=== PATIENT | male | born 1960 | race African-American/Black ===

== ENCOUNTER 2023-04-14 16:10 | Emergency (ER) | payer OTHER ==
[~2023-04-14] VITALS: Ht 170.2 cm; Wt 73.0 kg
[2023-04-14 16:25] VITALS: BP 128/68; PULSE 71; RESP 14; TEMP 98.6; O2SAT 100
[2023-04-14 16:49] LABS: DIFFERENTIAL COMMENT 0; EOSINOPHILS % 1.6 % (0.0-5.0); HEMATOCRIT. 35.4 % (42.0-52.0); HEMOGLOBIN. 11.5 g/dL (14.0-18.0); LYMPHOCYTES % 41.6 % (20.0-50.0); MEAN CORPUSCULAR HEMOGLOBIN 33.6 pg (28.0-32.0); MEAN CORPUSCULAR HGB CONC 32.6 g/dL (31.0-37.0); MEAN CORPUSCULAR VOLUME 103.1 fL (80.0-94.0); MEAN PLATELET VOLUME 7.5 fl (7.4-10.4); MONOCYTES % 10.2 % (2.0-8.0); NEUTROPHILS % 45.6 % (40.0-76.0); PLATELET 230 x1000/uL (130-400); RED BLOOD CELL COUNT 3.43 mill/uL (4.7-6.1); RED CELL DISTRIBUTION WIDTH 13.9 % (11.6-14.6)
[2023-04-14 17:04] LABS: ALANINE AMINOTRANSFERASE 12 IU/L (10-49); ALBUMIN 4.1 g/dL (3.2-4.8); ASPARTATE AMINOTRANSFERASE 22 IU/L (<34); CALCIUM 9.4 mg/dL (8.7-10.4); CARBON DIOXIDE 25 mEq/L (21-32); CHLORIDE 107 mEq/L (98-107); CREATININE 0.9 mg/dL (0.6-1.3); ETHANOL BLOOD 291 mg/dL (<10); GLUCOSE 82 mg/dL (70-105); POTASSIUM 3.9 mEq/L (3.5-5.1); PROTEIN TOTAL 6.6 g/dL (6.0-8.3); SODIUM 141 mEq/L (136-145); UREA NITROGEN BLOOD 13 mg/dL (9-23)
== END 2023-04-15 02:39 | disposition left against medical advice (07) ==
LOC: ER 16:10
DX: R53.1 Weakness (principal); F10.129 Alcohol abuse with intoxication, unspecified; I10 Essential (primary) hypertension; Y90.8 Blood alcohol level of 240 mg/100 ml or more
CPT/HCPCS: 36415; 80053; 80320; 85025; 99283; G0480

== ENCOUNTER 2023-05-06 01:33 | Emergency (ER) | payer MEDICAID, OTHER ==
[~2023-05-06] VITALS: Ht 172.7 cm; Wt 75.0 kg
[2023-05-06 01:45] VITALS: BP 132/84; PULSE 84; RESP 18; TEMP 98.1; O2SAT 98
[2023-05-06] MEDS ORDERED: ACETAMINOPHEN 650MG/20.3ML UDC PO ONE (06:00)
== END 2023-05-06 05:49 | disposition home or self-care (01) ==
LOC: ER 01:41
DX: M54.50 Low back pain, unspecified (principal)
CPT/HCPCS: 99283

== ENCOUNTER 2024-03-28 16:57 | Emergency (ER) | payer MEDICAID, OTHER ==
[~2024-03-28] VITALS: Ht 170.2 cm; Wt 77.0 kg
[~2024-03-28 16:57] MED LIST: ACET-2708 MT; CYCL10TA21 MT; ONDA4TAB50 MT; TRAZ-251 MT
[2024-03-28 17:03] VITALS: O2SAT 99
[2024-03-28 17:40] LABS: BASOPHILS % 0.5 % (0.0-2.0); EOSINOPHILS % 2.3 % (0.0-5.0); HEMATOCRIT. 32.6 % (42.0-52.0); LYMPHOCYTES % 49.1 % (20.0-50.0); MEAN CORPUSCULAR HGB CONC 33.8 g/dL (31.0-37.0); MEAN CORPUSCULAR VOLUME 94.9 fL (80.0-94.0); MEAN PLATELET VOLUME 7.3 fl (7.4-10.4); MONOCYTES % 8.2 % (2.0-8.0); NEUTROPHILS % 39.9 % (40.0-76.0); PLATELET 405 x1000/uL (130-400); RED BLOOD CELL COUNT 3.43 mill/uL (4.7-6.1); RED CELL DISTRIBUTION WIDTH 15.1 % (11.6-14.6); WHITE BLOOD COUNT 5.1 x1000/uL (4.5-11.0)
[2024-03-28 17:48] LABS: CARBON DIOXIDE 25 mEq/L (21-32); CHLORIDE 108 mEq/L (98-107); POTASSIUM 3.5 mEq/L (3.5-5.1); SODIUM 142 mEq/L (136-145)
[2024-03-28 17:49] LABS: CALCIUM 9.7 mg/dL (8.7-10.4)
[2024-03-28 17:54] LABS: CREATININE 1.2 mg/dL (0.6-1.3); GLUCOSE 77 mg/dL (70-105); UREA NITROGEN BLOOD 21 mg/dL (9-23)
[2024-03-28 17:55] LABS: ALANINE AMINOTRANSFERASE 11 IU/L (10-49); ASPARTATE AMINOTRANSFERASE 19 IU/L (<34)
[2024-03-28 17:56] LABS: ALBUMIN 4.2 g/dL (3.2-4.8); BILIRUBIN DIRECT 0.2 mg/dL (<=3.0); BILIRUBIN TOTAL 0.6 mg/dL (0.1-1.0); PROTEIN TOTAL 7.6 g/dL (6.0-8.3)
[2024-03-28 17:57] LABS: TROPONIN I HIGH SENSITIVITY < 4 ng/L (3.0-53)
[2024-03-28 22:45] VITALS: BP 114/59; PULSE 62; RESP 16; TEMP 37.11408; O2SAT 98
== END 2024-03-28 23:14 | disposition short-term general hospital (02) ==
LOC: ER 16:57 → EDBEDREQ 19:50 → EDBEDREQTM 19:50 → ER 23:14
DX: R53.1 Weakness (principal); I10 Essential (primary) hypertension; R51.9 Headache, unspecified; Z79.899 Other long term (current) drug therapy
CPT/HCPCS: 80076; 80048; 85025; 84484; 36415; 71045; 70450; 93005; 99285; Z7610